=== PATIENT | female | born 1970 | race Caucasian/White ===

== ENCOUNTER 2017-11-10 13:03 | Emergency (ER) | payer OTHER ==
[~2017-11-10] VITALS: Ht 162.5 cm; Wt 73.5 kg
[~2017-11-10 13:03] MED LIST: AMOXIL500 MG PO; DAYPRO600 M1 PO; FLEXERIL10 MG PO; FLEXERIL5 MG PO; HYDROCODONE BIT1 T11 PO; MOTRIN800 MG PO; NAPROSYN500 MG PO; NKHM; OYSTER CALCIUM500 M1 PO; PREDNICOT20 MG PO; PREDNISONE20 MG PO; ROBAXIN750 MG PO; VITAMIN D50000 IU PO
[2017-11-10] MEDS ORDERED: CHANTIX PAK 0.5 PO (13:19)
[2017-11-10] MEDS ORDERED: GOOD NEIGHBOR L10 MG PO (13:20)
[2017-11-10] MEDS ORDERED: KETOPROFEN75 MG PO (13:20)
[2017-11-10] MEDS ORDERED: VITAMIN D CAP 500 PO (13:20)
[2017-11-10] MEDS ORDERED: ATORVASTATIN CA10 M1 PO (13:20)
[2017-11-10] MEDS ORDERED: PREDNISONE10 MG PO (13:31)
[2017-11-10] MEDS ORDERED: 'PARAFON FORTE500 M1 PO (13:31)
[2017-11-10 15:23] VITALS: BP 135/85
== END 2017-11-10 15:22 | disposition home or self-care (01) ==
LOC: ED 13:03
DX: M54.5 Low back pain (principal); F17.200 Nicotine dependence, unspecified, uncomplicated; Z88.2 Allergy status to sulfonamides; Z79.899 Other long term (current) drug therapy

== ENCOUNTER 2018-01-07 09:20 | Emergency (ER) | payer OTHER ==
[~2018-01-07] VITALS: Wt 77.1 kg
[~2018-01-07 09:20] MED LIST changes: +'PARAFON FORTE500 M1 PO; +ATORVASTATIN CA10 M1 PO; +CHANTIX PAK 0.5 PO; +GOOD NEIGHBOR L10 MG PO; +KETOPROFEN75 MG PO; +PREDNISONE10 MG PO; +VITAMIN D CAP 500 PO
[2018-01-07 09:37] VITALS: BP 130/85
== END 2018-01-07 09:52 | disposition home or self-care (01) ==
LOC: ED 09:20
DX: M79.89 Other specified soft tissue disorders (principal); M79.641 Pain in right hand; F17.200 Nicotine dependence, unspecified, uncomplicated; Z98.890 Other specified postprocedural states; Z88.2 Allergy status to sulfonamides; Z79.899 Other long term (current) drug therapy

== ENCOUNTER 2018-08-01 16:45 | Emergency (ER) | payer OTHER ==
[2018-08-01 16:51] VITALS: BP 128/81
[2018-08-01] MEDS ORDERED: Motrin,Rufen800 MG PO (18:30)
[2018-08-01] MEDS ORDERED: ORPHENADRINE C100 M1 PO (18:33)
== END 2018-08-01 18:45 | disposition home or self-care (01) ==
LOC: ED 16:45
DX: S13.4XXA Sprain of ligaments of cervical spine, initial encounter (principal); S00.83XA Contusion of other part of head, initial encounter; Z98.890 Other specified postprocedural states; Z88.2 Allergy status to sulfonamides; Z79.899 Other long term (current) drug therapy; V49.88XA Car occupant (driver) (passenger) injured in other specified transport accidents, initial encounter; Y93.89 Activity, other specified; Y92.413 State road as the place of occurrence of the external cause; Y99.9 Unspecified external cause status

== ENCOUNTER → 2018-10-28 | Outpatient (CLI) | payer OTHER ==
[~2018-10-28] MED LIST changes: +Motrin,Rufen800 MG PO; +ORPHENADRINE C100 M1 PO
== END | disposition home or self-care (01) ==
LOC: MRI 08:55
DX: F07.81 Postconcussional syndrome (principal); R42 Dizziness and giddiness

== ENCOUNTER 2018-11-04 11:11 | Emergency (ER) | payer OTHER ==
[~2018-11-04] VITALS: Ht 160 cm; Wt 73.5 kg
[2018-11-04 11:12] VITALS: BP 109/76
[2018-11-04 12:06] LABS: BASO % 0.3 % (0.0-1.0); EOS % 0.4 % (1.0-4.0); HEMATOCRIT 50.8 % (37.0-47.0); HEMOGLOBIN 17.1 g/dl (12.0-16.0); LYMPH # 0.8 10*3/uL (1.3-4.4); LYMPH % 9.1 % (27.0-41.0); MEAN CELL VOLUME 90.6 fl (81.0-99.0); MEAN CORPUSCULAR HGB 30.5 pg (27.0-31.0); MEAN CORPUSCULAR HGB CONC 33.7 g/dl (33.0-37.0); MEAN PLATELET VOLUME 9.1 fl (9.6-12.3); MONO # 0.3 10*3/uL (0.1-1.0); MONO % 3.6 % (3.0-9.0); NEUT # 7.8 10*3/uL (2.3-7.9); NEUT % 86.4 % (47.0-73.0); PLATELET COUNT AUTOMATED 277 10*3/uL (130-400); RED BLOOD COUNT 5.61 10*6/uL (4.10-5.10); RED CELL DISTRI WIDTH 12.4 % (0-14.5)
[2018-11-04 12:20] LABS: ALKALINE PHOSPHATASE 109 U/L (45-117); BUN 12 mg/dl (7-24); CHLORIDE 107 mmol/L (98-107); CREATININE 0.95 mg/dL (0.55-1.02); LIPASE 65 U/L (73-393); POTASSIUM 4.1 mmol/L (3.5-5.1); SGOT/AST 10 IU/L (3-35); SGPT/ALT 22 U/L (12-78); SODIUM 140 mmol/L (136-145); TOTAL PROTEIN 7.9 gm/dL (6.4-8.2)
[2018-11-04] MEDS ORDERED: ZOFRAN4 MG PO (12:23)
== END 2018-11-04 13:27 | disposition home or self-care (01) ==
LOC: ED 11:11
PROVIDERS: Nurse Practitioner Family
DX: K52.9 Noninfective gastroenteritis and colitis, unspecified (principal); Z88.2 Allergy status to sulfonamides; Z79.899 Other long term (current) drug therapy

== ENCOUNTER → 2018-11-11 | Outpatient (CLI) | payer OTHER ==
[~2018-11-11] MED LIST changes: +ZOFRAN4 MG PO
== END | disposition home or self-care (01) ==
LOC: MRI 08:00
DX: M54.2 Cervicalgia (principal)

== ENCOUNTER 2021-03-31 19:04 | Emergency (ER) | payer OTHER ==
[~2021-03-31] VITALS: Ht 160 cm; Wt 72.6 kg
[2021-03-31 19:07] VITALS: BP 124/77
[2021-03-31] MEDS ORDERED: NAPROSYN500 MG PO (19:26)
[2021-03-31] MEDS ORDERED: METHOCARBAMOL750 M1 PO (19:26)
== END 2021-03-31 19:35 | disposition home or self-care (01) ==
LOC: ED 19:04
DX: S29.012A Strain of muscle and tendon of back wall of thorax, initial encounter (principal); F17.200 Nicotine dependence, unspecified, uncomplicated; Z88.8 Allergy status to other drugs, medicaments and biological substances; Z79.899 Other long term (current) drug therapy; Z98.890 Other specified postprocedural states; X58.XXXA Exposure to other specified factors, initial encounter; Y93.89 Activity, other specified; Y92.89 Other specified places as the place of occurrence of the external cause; Y99.8 Other external cause status

== ENCOUNTER → 2021-07-20 | Outpatient (CLI) | payer OTHER ==
[~2021-07-20] MED LIST changes: +METHOCARBAMOL750 M1 PO
== END | disposition home or self-care (01) ==
LOC: COVID19 16:31
PROVIDERS: ATTEND Internal Medicine
DX: Z11.52 Encounter for screening for COVID-19 (principal)

== ENCOUNTER → 2021-09-26 | Outpatient (CLI) | payer OTHER | END | disposition home or self-care (01) | LOC: COVID19 16:55 | PROVIDERS: ATTEND Internal Medicine | DX: Z11.52 Encounter for screening for COVID-19 (principal) ==

== ENCOUNTER → 2021-10-04 | Outpatient (CLI) | payer OTHER | END | disposition home or self-care (01) | LOC: COVID19 15:22 | PROVIDERS: ATTEND Internal Medicine | DX: U07.1 COVID-19 (principal) ==

== ENCOUNTER → 2022-01-26 | Outpatient (CLI) | payer OTHER ==
[2022-01-26 10:18] LABS: BASO # 0.1 10*3/uL (0.0-0.1); BASO % 0.9 % (0.0-1.0); EOS # 0.2 10*3/uL (0.0-0.4); EOS % 1.9 % (1.0-4.0); HEMATOCRIT 46.8 % (37.0-47.0); LYMPH % 21.4 % (27.0-41.0); MEAN CELL VOLUME 91.6 fl (81.0-99.0); MEAN CORPUSCULAR HGB 30.7 pg (27.0-31.0); MEAN CORPUSCULAR HGB CONC 33.5 g/dl (33.0-37.0); MEAN PLATELET VOLUME 9.3 fl (9.6-12.3); MONO # 0.5 10*3/uL (0.1-1.0); MONO % 5.7 % (3.0-9.0); NEUT # 6.5 10*3/uL (2.3-7.9); NEUT % 69.8 % (47.0-73.0); PLATELET COUNT AUTOMATED 296 10*3/uL (130-400); RED BLOOD COUNT 5.11 10*6/uL (4.10-5.10); RED CELL DISTRI WIDTH 12.2 % (0-14.5); WHITE BLOOD COUNT 9.3 10*3/uL (4.8-10.8)
[2022-01-26 10:36] LABS: BUN 13 mg/dl (7-24); CHLORIDE 108 mmol/L (98-107); CHOLESTEROL 184 mg/dL (<200); POTASSIUM 3.9 mmol/L (3.5-5.1); SGOT/AST 18 IU/L (3-35); SGPT/ALT 31 U/L (12-78); SODIUM 140 mmol/L (136-145); TOTAL PROTEIN 7.8 gm/dL (6.4-8.2); TRIGLYCERIDES 101 mg/dl (<150)
[2022-01-26 10:42] LABS: ALKALINE PHOSPHATASE 110 U/L (45-117); FREE T4 0.93 ng/dl (0.76-1.46); LDL CHOLESTEROL 109 mg/dL (9-159)
== END | disposition home or self-care (01) ==
LOC: LAB 09:06 → MAMMO 09:30
PROVIDERS: ATTEND Family Medicine
DX: Z12.31 Encounter for screening mammogram for malignant neoplasm of breast (principal); E78.00 Pure hypercholesterolemia, unspecified; F32.9 Major depressive disorder, single episode, unspecified

== ENCOUNTER 2022-09-30 12:05 | Emergency (ER) | payer OTHER ==
[~2022-09-30] VITALS: Wt 72.6 kg
[2022-09-30 12:14] VITALS: BP 123/87
[2022-09-30] MEDS ORDERED: TYLENOL325 M1 PO (12:27)
[2022-09-30] MEDS ORDERED: MUCINEX DM 30/61 TAB PO (12:27)
[2022-09-30] MEDS ORDERED: NAPROXEN250 MG PO (12:27)
== END 2022-09-30 13:23 | disposition home or self-care (01) ==
LOC: ED 12:05
DX: B34.9 Viral infection, unspecified (principal); Z20.822 Contact with and (suspected) exposure to COVID-19; Z88.2 Allergy status to sulfonamides; Z79.899 Other long term (current) drug therapy; Z98.890 Other specified postprocedural states

== ENCOUNTER → 2023-03-15 | Outpatient (CLI) | payer OTHER ==
[~2023-03-15] MED LIST changes: +MUCINEX DM 30/61 TAB PO; +NAPROXEN250 MG PO; +TYLENOL325 M1 PO
== END | disposition home or self-care (01) ==
LOC: MAMMO 09:26
PROVIDERS: ATTEND Internal Medicine Nephrology
DX: Z12.31 Encounter for screening mammogram for malignant neoplasm of breast (principal); M47.816 Spondylosis without myelopathy or radiculopathy, lumbar region; M54.42 Lumbago with sciatica, left side

== ENCOUNTER → 2023-03-30 | Outpatient (CLI) | payer OTHER | END | disposition home or self-care (01) | LOC: RAD 09:40 | PROVIDERS: ATTEND Internal Medicine Nephrology | DX: M85.851 Other specified disorders of bone density and structure, right thigh (principal); M85.852 Other specified disorders of bone density and structure, left thigh; M81.0 Age-related osteoporosis without current pathological fracture ==

== ENCOUNTER 2023-04-18 20:42 | Emergency (ER) | payer OTHER ==
[~2023-04-18] VITALS: Ht 162.5 cm; Wt 79.4 kg
[2023-04-18 20:56] VITALS: BP 117/81
[2023-04-18] MEDS ORDERED: NAPROXEN250 MG PO (22:01)
[2023-04-18] MEDS ORDERED: METHOCARBAMOL500 M1 PO (22:01)
== END 2023-04-18 22:17 | disposition home or self-care (01) ==
LOC: ED 20:42
DX: M54.2 Cervicalgia (principal); R10.31 Right lower quadrant pain; R51.9 Headache, unspecified; R41.3 Other amnesia; Z88.2 Allergy status to sulfonamides; Z98.890 Other specified postprocedural states; V89.2XXA Person injured in unspecified motor-vehicle accident, traffic, initial encounter; Y93.89 Activity, other specified; Y92.488 Other paved roadways as the place of occurrence of the external cause; Y99.8 Other external cause status

== ENCOUNTER → 2023-09-10 | Outpatient (CLI) | payer OTHER ==
[~2023-09-10] MED LIST changes: +METHOCARBAMOL500 M1 PO
[2023-09-10 17:40] LABS: CHLORIDE 109 mmol/L (98-107); POTASSIUM 4.2 mmol/L (3.4-5.1)
[2023-09-10 17:45] LABS: BUN < 5 mg/dl (9-23)
== END | disposition home or self-care (01) ==
LOC: LAB 17:00
PROVIDERS: ATTEND Internal Medicine
DX: U07.1 COVID-19 (principal)

== ENCOUNTER 2024-03-10 21:26 | Emergency (ER) | payer OTHER ==
[~2024-03-10] VITALS: Ht 167.6 cm; Wt 77.1 kg
[2024-03-10 21:51] VITALS: BP 144/79
[2024-03-10 21:56] LABS: BASO % 0.4 % (0.0-1.0); EOS # 0.1 10*3/uL (0.0-0.4); EOS % 1.1 % (1.0-4.0); MEAN CELL VOLUME 90.3 fl (81.0-99.0); MEAN CORPUSCULAR HGB 30.4 pg (27.0-31.0); MEAN CORPUSCULAR HGB CONC 33.6 g/dl (33.0-37.0); MEAN PLATELET VOLUME 9.1 fl (9.6-12.3); MONO # 0.5 10*3/uL (0.1-1.0); MONO % 5.5 % (3.0-9.0); NEUT # 6.1 10*3/uL (2.3-7.9); NEUT % 61.8 % (47.0-73.0); PLATELET COUNT AUTOMATED 284 10*3/uL (130-400); RED BLOOD COUNT 4.87 10*6/uL (4.10-5.10); RED CELL DISTRI WIDTH 12.1 % (0-14.5); WHITE BLOOD COUNT 9.9 10*3/uL (4.8-10.8)
[2024-03-10 22:08] LABS: ACT PARTIAL THROMBO TIME 29.3 SECONDS (20.0-32.1)
[2024-03-10 22:18] LABS: ALKALINE PHOSPHATASE 105 U/L (46-116); BUN 5 mg/dl (9-23); CHLORIDE 106 mmol/L (98-107); POTASSIUM 3.9 mmol/L (3.4-5.1); SGPT/ALT 14 U/L (5-49); TOTAL PROTEIN 7.6 gm/dL (6.0-8.0)
== END 2024-03-11 01:51 | disposition left against medical advice (07) ==
LOC: ED 21:26
PROVIDERS: Emergency Medicine
DX: H54.7 Unspecified visual loss (principal); R10.30 Lower abdominal pain, unspecified; R51.9 Headache, unspecified; R68.84 Jaw pain; M79.7 Fibromyalgia; E78.00 Pure hypercholesterolemia, unspecified; Z53.29 Procedure and treatment not carried out because of patient's decision for other reasons; Z88.2 Allergy status to sulfonamides; Z98.890 Other specified postprocedural states

== ENCOUNTER → 2024-03-12 | Outpatient (CLI) | payer OTHER ==
[2024-03-12 13:24] LABS: FREE T4 1.16 ng/dl (0.89-1.76)
== END | disposition home or self-care (01) ==
LOC: LAB 12:26
PROVIDERS: ATTEND Internal Medicine Nephrology
DX: G45.3 Amaurosis fugax (principal); M54.50 Low back pain, unspecified

== ENCOUNTER → 2024-03-26 | Outpatient (CLI) | payer OTHER | LOC: US 03-19 08:30 | PROVIDERS: ATTEND Internal Medicine Nephrology | DX: I65.23 Occlusion and stenosis of bilateral carotid arteries (principal); R00.0 Tachycardia, unspecified; R51.9 Headache, unspecified; R68.84 Jaw pain ==

== ENCOUNTER 2024-05-28 02:46 | Emergency (ER) | payer OTHER ==
[~2024-05-28] VITALS: Ht 160 cm; Wt 81.2 kg
[2024-05-28] MEDS ORDERED: Ondansetron Hydrochloride 4 MG/2 ML VIAL IV ONE (03:45)
[2024-05-28] MEDS ORDERED: SODIUM CHLORIDE 0.9% 1,000 ML IV ONE (03:45)
[2024-05-28 04:08] LABS: BASO % 0.3 % (0.0-1.0); EOS # 0.1 10*3/uL (0.0-0.4); EOS % 0.6 % (1.0-4.0); HEMATOCRIT 42.6 % (37.0-47.0); LYMPH # 1.2 10*3/uL (1.3-4.4); LYMPH % 10.4 % (27.0-41.0); MEAN CELL VOLUME 90.6 fl (81.0-99.0); MEAN CORPUSCULAR HGB 30.9 pg (27.0-31.0); MEAN PLATELET VOLUME 9.3 fl (9.6-12.3); MONO # 0.5 10*3/uL (0.1-1.0); MONO % 4.2 % (3.0-9.0); NEUT % 84.1 % (47.0-73.0); PLATELET COUNT AUTOMATED 242 10*3/uL (130-400); RED CELL DISTRI WIDTH 11.9 % (0-14.5); WHITE BLOOD COUNT 11.9 10*3/uL (4.8-10.8)
[2024-05-28 04:26] LABS: BUN 11 mg/dl (9-23); CHLORIDE 110 mmol/L (98-107); POTASSIUM 3.5 mmol/L (3.4-5.1)
[2024-05-28] MEDS ORDERED: Meclizine Hydrochloride 25 MG TAB PO ONE (05:40)
[2024-05-28 06:32] VITALS: BP 113/74
[2024-05-28] MEDS ORDERED: Meclizine25 MG PO (07:21)
[2024-05-28] MEDS ORDERED: Ondansetron4 MG PO (08:39)
== END 2024-05-28 07:46 | disposition home or self-care (01) ==
LOC: ED 02:46
PROVIDERS: Emergency Medicine
DX: R42 Dizziness and giddiness (principal); R11.2 Nausea with vomiting, unspecified; F17.200 Nicotine dependence, unspecified, uncomplicated; Z88.2 Allergy status to sulfonamides; Z79.899 Other long term (current) drug therapy; Z98.890 Other specified postprocedural states

== ENCOUNTER → 2025-09-17 | Outpatient (CLI) | payer OTHER ==
[~2025-09-17] MED LIST changes: +Meclizine25 MG PO; +Ondansetron4 MG PO
== END | disposition home or self-care (01) ==
LOC: MAMMO 01:18
PROVIDERS: ATTEND Internal Medicine
DX: Z12.31 Encounter for screening mammogram for malignant neoplasm of breast (principal); R92.323 Mammographic fibroglandular density, bilateral breasts